=== PATIENT | female | born 1955 | race Caucasian/White ===

== ENCOUNTER 2019-12-31 08:32 | Outpatient (REF) | payer OTHER, SELFPAY ==
--- NOTE | 2019-12-31 11:35 | MHC.AU.P13 ---
Adult Audiological Evaluation Date of Visit: 12/31/19 Reason for Appointment: Audiological re-evaluation to monitor status of hearing loss. Patient feels that hearing has gradually decreased. She denies any changes to her medical history. Previous Hearing Test Results: [facility] [place]- Asymmetric moderate to profound mixed hearing loss, right ear poorer than left. Hearing Instrument History- Right Ear: Miller Head Assistant Wet Process: GumGum Model: Light Chaser Animation90-SP Serial Number: [id number] Battery Size: 13 Warranty: 06/27/18 Hearing Instrument History- Left Ear: Miller Head Assistant Wet Process: Scimetrikaak Model: LoftyVistas V90-SP Serial Number: [id number] Battery Size: 13 Warranty: 06/27/2018 Otoscopy: Right Ear: Some redness of TM Left Ear: Unremarkable Tympanometry: Right Ear: Normal Middle Ear System (Type A) Left Ear: Normal Middle Ear System (Type A) Hearing Evaluation: Transducer(s) Used: Insert Earphones, Bone Conduction Method: Conventional Audiometry Stimuli Used: Pure Tones Right Ear: Description of Hearing: Moderate hearing loss at 250 Hz, sloping to a moderately severe mixed hearing loss at 500 Hz, a severe mixed hearing loss at 1000 Hz, a severe sensorineural hearing loss at 2000 Hz, a severe mixed hearing loss at 4000 Hz, and a severe hearing loss at 8000 Hz. Left Ear: Description of Hearing: Moderate hearing loss at 250 Hz, sloping to a moderately severe mixed hearing loss at 500 Hz, a severe mixed hearing loss at 1000 Hz, a severe sensorineural hearing loss at 2000 Hz, a moderately severe mixed hearing loss at 4000 Hz, and a moderately severe hearing loss at 8000 Hz. Speech Recognition Threshold (SRT): Method Used: Monitored Live Voice Stimuli Used: Spondee Words Right Ear: 65 dBHL Left Ear: 70 dBHL Word Discrimination: Method: Recorded Lists Word Lists Used: NU-6 Right Ear: 68% at 90 dBHL and 92% at 95 dBHL Left Ear: 72% at 95 dBHL Comparison: Compared to the most recent evaluation: Thresholds have decreased in the left ear. Word discrimination scores have decreased in the left ear. Compared to most recent evaluation: Air conduction thresholds are more symmetric than previous hearing tests, though bone conduction thresholds are asymmetric with the right better than the left. Recommendations: Recommendations: Audiological re-evaluation if changes are noted. Audiological re-evaluation in one year. Recommendations (Other): Hearing aid maintenance performed and hearing aids reprogrammed to today's audiogram. Recommend hearing aid maintenance in six months. Diagnosis: Primary Diagnosis: H90.6 Mixed Hearing Loss, Bilateral Services Performed: Services Performed: Comprehensive Audiological Evaluation (CPT 04924) Tympanometry (CPT 10219) Signature: Provider: Yoseph Hankins, CCC-A
== END 2019-12-31 08:33 | disposition home or self-care (01) ==
LOC: HO.SH 08:32
PROVIDERS: Visit Provider Family Medicine
DX: H90.6 Mixed conductive and sensorineural hearing loss, bilateral (principal)
CPT/HCPCS: 92557; 92567

== ENCOUNTER 2020-08-26 09:29 | Outpatient (REF) | payer SELFPAY ==
--- NOTE | 2020-08-26 09:44 | MHC.AU.P13 ---
Hearing Instrument Maintenance Date of Visit: 08/26/20 IRight Ear: Engraved Roller Inspector: Phonak Model: [employer]Marketero V90-SP Serial Number: [id number] Repair Warranty: 06/27/18 Battery Size: 13 Tubing: Size 2 slim tube Type of Dome: Medium power dome Dispensed By: [facility] Date of Fittin04/21/2015 Left Ear: Engraved Roller Inspector: Phonak Model: Bolero V90-SP Serial Number: [id number] Repair Warranty: 06/27/2018 Battery Size: 13 Tubing: Size 2 slim tube Type of Dome: Medium power dome Dispensed By: [facility] Date of Fittin04/21/15 Follow-Up Summary: Hearing aids brought in for cleaning. Both hearing aids cleaned, #2 slim tubes and medium power domes replaced, both amplifying clearly. Recommendations: Recommendations: Hearing instrument follow-up or maintenance as needed. Signature: Provider: JAIME Cotton
== END 2020-08-26 09:30 | disposition home or self-care (01) ==
LOC: HO.HAP 09:29
PROVIDERS: Visit Provider Family Medicine
DX: Z46.1 Encounter for fitting and adjustment of hearing aid (principal)
CPT/HCPCS: 99499